=== PATIENT | male | born 1985 | race American Indian/Alaskan Native ===

== ENCOUNTER 2016-09-16 15:16 | Emergency (ER) | payer MEDICARE ==
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
[2016-09-16 22:22] VITALS: BP 116/66
--- NOTE | 2016-09-16 23:07 | XRay Report ---
FINAL REPORT EXAM: XR SPINE CERVICAL 2-3V HISTORY: fall, neck pain COMPARISONS: None. FINDINGS: The three-view cervical spine There is straightening of the cervical spine. Vertebral body heights intervertebral disc spaces are preserved. Prevertebral soft tissues are within normal limits. No fractures. Incomplete evaluation of the lung apices is unremarkable. IMPRESSION: Straightening of the cervical spine, which may be secondary to muscular spasm or positioning. No fracture identified. Consider MRI follow-up as warranted.
--- NOTE | 2016-09-16 23:09 | XRay Report ---
FINAL REPORT EXAM: XR SPINE LUMBOSACRAL 2-3V HISTORY: fall, low middle back pain TECHNIQUE: Three views lumbar spine PRIORS: None. FINDINGS: Lumbar lordosis is intact. Vertebral body heights and intervertebral disc spaces are preserved. No listhesis, spondylolysis or other fracture. IMPRESSION: Unremarkable lumbar spine radiographs.
== END 2016-09-16 22:20 | disposition home or self-care (01) ==
LOC: ED 15:16
DX: M54.5 Low back pain (principal); M54.2 Cervicalgia; F17.200 Nicotine dependence, unspecified, uncomplicated; W01.0XXA Fall on same level from slipping, tripping and stumbling without subsequent striking against object, initial encounter; Y93.89 Activity, other specified; Y99.8 Other external cause status; Y92.89 Other specified places as the place of occurrence of the external cause
CPT/HCPCS: 72040; 72100; 99283

== ENCOUNTER 2021-03-01 16:23 | Emergency (ER) | payer MEDICARE ==
[2021-03-01] MEDS ORDERED: ASPIRIN 325 MG TAB PO ONE (17:32)
--- NOTE | 2021-03-01 17:54 | XRay Report ---
CHEST 2 VIEWS INDICATION / CLINICAL INFORMATION: Chest Pain. COMPARISON: None available. FINDINGS: SUPPORT DEVICES: None. HEART / MEDIASTINUM: No significant abnormality. LUNGS / PLEURA: No significant pulmonary or pleural abnormality. No pneumothorax. ADDITIONAL FINDINGS: No significant additional findings. IMPRESSION: 1. No acute findings. Signer Name: Tevin De Los Santos MD Signed: 03/01/2021 5:50 PM Workstation Name: [id number]
--- NOTE | 2021-03-01 18:02 | Emergency Department Report ---
ED Chest Pain HPI - General Chief Complaint: Chest Pain Stated Complaint: CHEST PAIN Time Seen by Provider: 03/01/21 17:05 Source: patient Mode of arrival: Ambulatory Limitations: No Limitations - History of Present Illness Initial Comments: Patient is a 35-year-old male presents emergency room complaints of left-sided chest pain that began today while he was playing a video game. He states he felt some tingling in his left arm. He states it felt like a tightness sensation and he had some mild shortness of breath. He denies any diaphoresis, nausea, vomiting, diarrhea, cough, hemoptysis, leg swelling, calf pain. No past medical history. No allergies to medications. He denies any tobacco use. He endorses marijuana use. He denies any family cardiac history. He denies any recent travel, recent surgery, recent immobilization. - Related Data Previous Rx's Medication Instructions Recorded Last Taken Type Cyclobenzaprine [Flexeril] 10 mg PO BID PRN #20 tablet 09/16/16 Unknown Rx Naproxen [Naprosyn TAB] 500 mg PO BID #20 tablet 09/16/16 Unknown Rx traMADoL [Ultram 50 MG tab] 50 mg PO Q6HR PRN #20 tablet 09/16/16 Unknown Rx Allergies Allergy/AdvReac Type Severity Reaction Status Date / Time No Known Allergies Allergy Verified 09/16/16 15:55 Heart Score - HEART Score History: Moderately suspicious EKG: Normal Age: < 45 Risk factors: 1-2 risk factors Troponin: < normal limit HEART Score: 2 - EKG Read Time Time EKG Completed: 16:31 EKG Read Time: 16:42 ED Review of Systems ROS: Stated complaint: CHEST PAIN Other details as noted in HPI Comment: All other systems reviewed and negative ED Past Medical Hx - Social History Smoking Status: Current Some Day Smoker Substance Use Type: Alcohol - Medications Home Medications: Home Medications Medication Instructions Recorded Confirmed Last Taken Type Cyclobenzaprine [Flexeril] 10 mg PO BID PRN #20 tablet 09/16/16 Unknown Rx Naproxen [Naprosyn TAB] 500 mg PO BID #20 tablet 09/16/16 Unknown Rx traMADoL [Ultram 50 MG tab] 50 mg PO Q6HR PRN #20 tablet 09/16/16 Unknown Rx ED Physical Exam - General Limitations: No Limitations General appearance: alert, in no apparent distress - Head Head exam: Present: atraumatic, normocephalic - Eye Eye exam: Present: normal appearance - ENT ENT exam: Present: mucous membranes moist - Respiratory Respiratory exam: Present: normal lung sounds bilaterally. Absent: respiratory distress, wheezes, rales, rhonchi, stridor, chest wall tenderness, accessory muscle use, decreased breath sounds, prolonged expiratory - Cardiovascular Cardiovascular Exam: Present: regular rate, normal rhythm, normal heart sounds. Absent: systolic murmur, diastolic murmur, rubs, gallop - Neurological Exam Neurological exam: Present: alert, oriented X3 - Psychiatric Psychiatric exam: Present: normal affect, normal mood - Skin Skin exam: Present: warm, dry, intact ED Course Vital Signs 03/01/21 16:25 Temperature 98.4 F Pulse Rate 65 Respiratory 20 Rate Blood Pressure 148/72 [Right] O2 Sat by Pulse 99 Oximetry ED Medical Decision Making - Lab Data Result diagrams: 03/01/21 17:35 03/01/21 17:35 Lab Results 03/01/21 03/01/21 03/01/21 Range/Units 17:35 17:35 17:35 WBC 5.0 (4.5-11.0) K/mm3 RBC 4.70 (3.65-5.03) M/mm3 Hgb 14.8 (11.8-15.2) gm/dl Hct 46.2 H (35.5-45.6) % MCV 98 H (84-94) fl MCH 32 (28-32) pg MCHC 32 (32-34) % RDW 13.6 (13.2-15.2) % Plt Count 246 (140-440) K/mm3 Lymph % (Auto) 34.7 (13.4-35.0) % [place] % (Auto) 4.8 (0.0-7.3) % Eos % (Auto) 0.4 (0.0-4.3) % Baso % (Auto) 0.5 (0.0-1.8) % Lymph # (Auto) 1.7 (1.2-5.4) K/mm3 [place] # (Auto) 0.2 (0.0-0.8) K/mm3 Eos # (Auto) 0.0 (0.0-0.4) K/mm3 Baso # (Auto) 0.0 (0.0-0.1) K/mm3 Seg Neutrophils % 59.6 (40.0-70.0) % Seg Neutrophils # 3.0 (1.8-7.7) K/mm3 D-Dimer < 135.00 (0-234) ng/mlDDU Sodium 139 (137-145) mmol/L Potassium 3.8 (3.6-5.0) mmol/L Chloride 104.9 (98-107) mmol/L Carbon Dioxide 21 L (22-30) mmol/L Anion Gap 17 mmol/L BUN 14 (9-20) mg/dL Creatinine 1.1 (0.8-1.3) mg/dL Estimated GFR > 60 ml/min BUN/Creatinine Ratio 13 % Glucose 107 H (75-100) mg/dL Calcium 9.4 (8.4-10.2) mg/dL Total Bilirubin 0.50 (0.1-1.2) mg/dL AST 21 (5-40) units/L ALT 15 (7-56) units/L Alkaline Phosphatase 58 (35-129) units/L Troponin T < 0.010 (0.00-0.029) ng/mL NT-Pro-B Natriuret Pep 17.64 (0-450) pg/mL Total Protein 7.4 (6.3-8.2) g/dL Albumin 4.2 (3.9-5) g/dL Albumin/Globulin Ratio 1.3 % - EKG Data EKG shows normal: sinus rhythm, axis, intervals, QRS complexes, ST-T waves Rate: normal - Radiology Data Radiology results: report reviewed Ordering Physician: AJAY REDD Date of Service: 03/01/21 Procedure(s): XR chest routine 2V Accession Number(s): [id number] cc: AJAY REDD Fluoro Time In Minutes: CHEST 2 VIEWS INDICATION / CLINICAL INFORMATION: Chest Pain. COMPARISON: None available. FINDINGS: SUPPORT DEVICES: None. HEART / MEDIASTINUM: No significant abnormality. LUNGS / PLEURA: No significant pulmonary or pleural abnormality. No pneumothorax. ADDITIONAL FINDINGS: No significant additional findings. IMPRESSION: 1. No acute findings. Signer Name: Carson De Los Santos MD Signed: 03/01/2021 5:50 PM Workstation Name: [id number] Transcribed By: DB Dictated By: CARSON DE LOS SANTOS MD Electronically Authenticated By: CARSON DE LOS SANTOS MD Signed Date/Time: 03/01/211749 DD/ 49 TD/TT: - Medical Decision Making Patient is a 35-year-old male presents emergency room complaints of left-sided chest pain that began today while he was playing a video game. He states he felt some tingling in his left arm. He states it felt like a tightness sensati on and he had some mild shortness of breath. He denies any diaphoresis, nausea, vomiting, diarrhea, cough, hemoptysis, leg swelling, calf pain. No past medical history. No allergies to medications. He denies any tobacco use. He endorses marijuana use. He denies any family cardiac history. He denies any recent travel, recent surgery, recent immobilization. Vitals are stable. EKG is within normal notes. Labs are normal. Troponin is negative x2. D-dimer is negative, PERC criteria negative for PE. Heart score is 2, low risk for cardiac event. Chest x-ray with no acute process. Patient be referred to outpatient cardiology and primary care. Advised patient Please follow-up with your primary care doctor. Please follow-up with a medical tech. Return to emergency room for any new or worsening symptoms. Critical care attestation.: If time is entered above; I have spent that time in minutes in the direct care of this critically ill patient, excluding procedure time. ED Disposition Clinical Impression: Chest pain Qualifiers: Chest pain type: unspecified Qualified Code(s): R07.9 - Chest pain, unspecified Disposition: 01 HOME / SELF CARE / HOMELESS Is pt being admited?: No Does the pt Need Aspirin: Yes (given) Condition: Stable Instructions: Nonspecific Chest Pain, Adult Additional Instructions: Please follow-up with your primary care doctor. Please follow-up with a medical tech. Return to emergency room for any new or worsening symptoms. Referrals: PRIMARY CARE, [Primary Care Provider] - 2-3 Days CURRY GOANA MD [Staff Physician] - 2-3 Days Time of Disposition: 21:24 Print Language: SOU[place] A[place]
[2021-03-01 18:14] LABS: Basophils % (Auto) 0.5 % (0.0-1.8); Eosinophils % (Auto) 0.4 % (0.0-4.3); Hematocrit 46.2 % (35.5-45.6); Hemoglobin 14.8 gm/dl (11.8-15.2); Lymphocytes # (Auto) 1.7 K/mm3 (1.2-5.4); Lymphocytes % (Auto) 34.7 % (13.4-35.0); Mean Corpuscular HGB Conc 32 % (32-34); Mean Corpuscular Volume 98 fl (84-94); Monocytes # (Auto) 0.2 K/mm3 (0.0-0.8); Monocytes % (Auto) 4.8 % (0.0-7.3); Platelet Count 246 K/mm3 (140-440); Red Cell Distribution Width 13.6 % (13.2-15.2)
[2021-03-01 18:41] LABS: Alanine Aminotransferase 15 units/L (7-56); Albumin 4.2 g/dL (3.9-5); BUN/Creatinine Ratio 13; Blood Urea Nitrogen 14 mg/dL (9-20); Calcium 9.4 mg/dL (8.4-10.2); Hemolysis Index 39
[2021-03-01 21:37] VITALS: BP 124/61
--- NOTE | 2021-03-02 11:42 | Electrocardiograph Report ---
[facility] Test Date: 2021-03-01 Test Time: 16:31:37 Pat Name: FALLON WOMACK Department: Room: Gender: M Alteration Specialist: ALTAGRACIA : [id number] Requested By: MARGOT CROWDER Order Number: [id number] Reading MD: William Nolasco Measurements Intervals [place] Rate: 62 P: 51 VT: 146 QRS: 42 QRSD: 95 T: 18 QT: 409 QTc: 416 Interpretive Statements Sinus rhythm No previous ECG available for comparison Electronically Signed On 03-02-2021 11:42:24 EST by William Nolasco
== END 2021-03-01 21:38 | disposition home or self-care (01) ==
LOC: ED 16:23
DX: R07.9 Chest pain, unspecified (principal); F17.200 Nicotine dependence, unspecified, uncomplicated
CPT/HCPCS: 36415; 71046; 80053; 83880; 84484; 85025; 85379; 93005; 99284